=== PATIENT | male | born 1960 | race African-American/Black ===

== ENCOUNTER 2016-07-31 08:01 | Emergency (ER) | payer MEDICAID ==
[~2016-07-31] VITALS: Ht 182.9 cm; Wt 160.0 kg
[~2016-07-31 08:01] MED LIST: ASPI-864
[2016-07-31 08:04] VITALS: BP 168/81
[2016-07-31] MEDS ORDERED: BACITRACIN ZINC OINT UDPKT TOP ONE (08:45)
[2016-07-31] MEDS ORDERED: LIDOCAINE HCL 1% 20ML VIAL (Pyxis) INJ MC ONE (08:45)
== END 2016-07-31 09:50 | disposition home or self-care (01) ==
LOC: ER 08:02
DX: L60.0 Ingrowing nail (principal); I10 Essential (primary) hypertension; E78.00 Pure hypercholesterolemia, unspecified; Z86.718 Personal history of other venous thrombosis and embolism; Z86.711 Personal history of pulmonary embolism; Z79.01 Long term (current) use of anticoagulants; Z79.82 Long term (current) use of aspirin; Z88.8 Allergy status to other drugs, medicaments and biological substances
CPT/HCPCS: 11750; 99284; J3490; X7700; Z7610

== ENCOUNTER 2016-08-02 09:21 | Emergency (ER) | payer MEDICAID ==
[~2016-08-02] VITALS: Ht 182.9 cm; Wt 163.0 kg
[2016-08-02 09:28] VITALS: BP 160/91
[2016-08-02] MEDS ORDERED: BACITRACIN ZINC OINT UDPKT TOP ONE (11:15)
== END 2016-08-02 12:50 | disposition home or self-care (01) ==
LOC: ER 10:31
DX: E11.621 Type 2 diabetes mellitus with foot ulcer (principal); Z88.8 Allergy status to other drugs, medicaments and biological substances; Z79.82 Long term (current) use of aspirin; E78.00 Pure hypercholesterolemia, unspecified; I10 Essential (primary) hypertension
CPT/HCPCS: 99283; A4217

== ENCOUNTER 2017-01-02 15:20 | Inpatient (IN) | payer MEDICAID ==
[~2017-01-02] VITALS: Ht 188 cm; Wt 170.6 kg
[~2017-01-02 15:20] MED LIST changes: +IOHEXOL-350 100 ML BOTTLE ONE; +SODIUM CHLORIDE 0.9% 10ML VIAL ONE
[2017-01-02 18:18] LABS: BASOPHILS % 0.8 % (0.0-2.0); EOSINOPHILS % 0.7 % (0.0-5.0); HEMATOCRIT. 37.8 % (42.0-52.0); HEMOGLOBIN. 12.4 g/dL (14.0-18.0); LYMPHOCYTES % 15.9 % (20.0-50.0); MEAN CORPUSCULAR VOLUME 85.4 fL (80.0-94.0); MEAN PLATELET VOLUME 7.6 fl (7.4-10.4); MONOCYTES % 8.7 % (2.0-8.0); NEUTROPHILS % 73.9 % (40.0-76.0); PLATELET 268 x1000/uL (130-400); RED BLOOD CELL COUNT 4.43 mill/uL (4.7-6.1); RED CELL DISTRIBUTION WIDTH 13.7 % (11.6-14.6)
[2017-01-02 18:21] LABS: CHLORIDE 104 mEq/L (98-107)
[2017-01-02 18:30] LABS: CARBON DIOXIDE 28 mEq/L (21-32)
[2017-01-02 18:31] LABS: TROPONIN I 0.06 ng/mL (0.00-0.04)
[2017-01-02] MEDS ORDERED: ENOXAPARIN 150MG/ML SYR SUBCUT NR (19:45)
[2017-01-02] MEDS ORDERED: AMLO10TA80 PO (22:09)
[2017-01-02] MEDS ORDERED: ATOR20TA PO (22:09)
[2017-01-02 23:40] VITALS: BP 154/86
[2017-01-02] MEDS ORDERED: CYCL5TAB PO (23:50)
[2017-01-03] VITALS (7 sets, daily range): BP systolic 127–155; BP diastolic 65–86
[2017-01-03] MEDS: ACETAMINOPHEN 325MG TABLET PO PRN (00:36)
[2017-01-03] MEDS ORDERED: MORPHINE SULFATE 4 MG/ML CPJ (NOT FOR IM USE) IV PRN (01:15)
[2017-01-03] MEDS ORDERED: MEDICATION NOT ON FORMULARY EA (Cyclobenzaprine Hcl 1 TAB) PO SCH (01:30)
[2017-01-03] MEDS ORDERED: ENOXAPARIN 80MG/0.8ML SYR SUBCUT SCH ×2 (01:45→09:00)
[2017-01-03] MEDS ORDERED: ENOXAPARIN 100MG/ML SYR SUBCUT SCH ×2 (01:45→09:00)
[2017-01-03] MEDS ORDERED: CYCLOBENZAPRINE 10MG TABLET PO PRN (01:45)
[2017-01-03 07:06] LABS: BASOPHILS % 0.5 % (0.0-2.0); EOSINOPHILS % 1.1 % (0.0-5.0); HEMATOCRIT. 37.8 % (42.0-52.0); HEMOGLOBIN. 12.5 g/dL (14.0-18.0); LYMPHOCYTES % 25.4 % (20.0-50.0); MEAN CORPUSCULAR HEMOGLOBIN 28.3 pg (28.0-32.0); MEAN CORPUSCULAR VOLUME 85.4 fL (80.0-94.0); MEAN PLATELET VOLUME 8.2 fl (7.4-10.4); PLATELET 290 x1000/uL (130-400); RED BLOOD CELL COUNT 4.43 mill/uL (4.7-6.1); RED CELL DISTRIBUTION WIDTH 14.1 % (11.6-14.6)
[2017-01-03 07:34] LABS: CHLORIDE 101 mEq/L (98-107)
[2017-01-03 07:49] LABS: CARBON DIOXIDE 26 mEq/L (21-32); HDL CHOLESTEROL 50 mg/dL (40-59); LDL CHOLESTEROL 119 mg/dL (5-100); T4 FREE 1.14 ng/dL (0.76-1.46)
[2017-01-03] MEDS ORDERED: AMLODIPINE 10MG TABLET PO SCH (09:00)
[2017-01-03] MEDS: AMLODIPINE 5MG TABLET PO SCH (10:12)
[2017-01-03] MEDS: ASPIRIN 81MG EC TABLET PO SCH (10:13)
[2017-01-03] MEDS: ENOXAPARIN 150MG/ML SYR SUBCUT SCH ×2 (10:50→21:31)
[2017-01-03 15:39] LABS: INR 1.1
[2017-01-03] MEDS ORDERED: WARFARIN SODIUM 7.5MG TABLET PO SCH (18:00)
[2017-01-03 21:22] LABS: PROTHROMBIN TIME 10.9 sec (9.4-11.6)
[2017-01-03] MEDS: ATORVASTATIN CALCIUM 20MG TABLET PO SCH (21:28)
[2017-01-04] VITALS: BP 119/74
[2017-01-04 04:00] VITALS: BP 136/78
[2017-01-04 07:10] LABS: PROTHROMBIN TIME 10.9 sec (9.4-11.6)
[2017-01-04 08:00] VITALS: BP 108/65
[2017-01-04] MEDS: ASPIRIN 81MG EC TABLET PO SCH (09:13)
[2017-01-04] MEDS: ENOXAPARIN 150MG/ML SYR SUBCUT SCH (09:13)
[2017-01-04] MEDS: AMLODIPINE 5MG TABLET PO SCH (09:14)
[2017-01-04 12:00] VITALS: BP 150/76
[2017-01-04] MEDS ORDERED: MAGNESIUM HYDROXIDE 400MG/5ML 30ML UDC PO PRN (15:45)
[2017-01-04 16:00] VITALS: BP 149/79
[2017-01-04] MEDS ORDERED: WARFARIN SODIUM 4MG TABLET PO NR (18:00)
[2017-01-04] MEDS: DOCUSATE SODIUM 100MG CAPSULE PO SCH (18:13)
[2017-01-04 20:00] VITALS: BP 153/80
[2017-01-04] MEDS: APIXABAN 5 MG TABLET PO SCH (21:00)
[2017-01-04] MEDS: ATORVASTATIN CALCIUM 20MG TABLET PO SCH (21:00)
[2017-01-05] VITALS: BP 150/85
[2017-01-05 04:00] VITALS: BP 158/86
[2017-01-05] MEDS: ACETAMINOPHEN 325MG TABLET PO PRN (05:28)
[2017-01-05 05:38] LABS: INR 1.1; PROTHROMBIN TIME 11.2 sec (9.4-11.6)
[2017-01-05 08:00] VITALS: BP 144/74
[2017-01-05] MEDS: APIXABAN 5 MG TABLET PO SCH (09:27)
[2017-01-05] MEDS: DOCUSATE SODIUM 100MG CAPSULE PO SCH (09:27)
[2017-01-05] MEDS: ASPIRIN 81MG EC TABLET PO SCH (09:28)
[2017-01-05] MEDS: AMLODIPINE 5MG TABLET PO SCH (09:28)
[2017-01-05 12:00] VITALS: BP 133/77
[2017-01-05 15:24] VITALS: BP 133/77
[2017-01-06 09:11] LABS: DRVVT LA 39.8 sec (0.0-47.0); PTT-LA 36.4 sec (0.0-51.9)
[2017-01-06 13:08] LABS: LUPUS ANTICOAG INTERPRETATION Comment: (.)
== END 2017-01-05 16:20 | disposition home or self-care (01) | DRG 134 ==
LOC: ER 15:24 → 5WST 21:58 → ENRESERV 22:26
PROVIDERS: ADMIT Hospitalist; ATTEND Hospitalist
DX: I26.99 Other pulmonary embolism without acute cor pulmonale (principal); J96.00 Acute respiratory failure, unspecified whether with hypoxia or hypercapnia; Z68.42 Body mass index [BMI] 45.0-49.9, adult; D68.59 Other primary thrombophilia; E66.01 Morbid (severe) obesity due to excess calories; R65.10 Systemic inflammatory response syndrome (SIRS) of non-infectious origin without acute organ dysfunction; I10 Essential (primary) hypertension; D64.9 Anemia, unspecified; E11.9 Type 2 diabetes mellitus without complications; E78.00 Pure hypercholesterolemia, unspecified; E78.5 Hyperlipidemia, unspecified; Z79.01 Long term (current) use of anticoagulants; Z86.718 Personal history of other venous thrombosis and embolism; Z82.49 Family history of ischemic heart disease and other diseases of the circulatory system; Z88.8 Allergy status to other drugs, medicaments and biological substances; I25.2 Old myocardial infarction; Z87.01 Personal history of pneumonia (recurrent)
CPT/HCPCS: 36415; 71010; 71275; 80053; 80061; 81403; 81407; 81479; 83880; 84439; 84443; 84484; 85025; 85044; 85300; 85379; 85610; 85613; 85732; 93005; 93306; 93970; 96372; 97116; 97162; 99291; A4216; J1650; Q9967

== ENCOUNTER 2018-11-25 18:42 | Inpatient (IN) | payer MEDICAID ==
[~2018-11-25] VITALS: Ht 182.9 cm; Wt 175.1 kg
[~2018-11-25 18:42] MED LIST changes: +AMLO10TA80 PO; +ATOR20TA PO; +CYCL5TAB PO; -IOHEXOL-350 100 ML BOTTLE ONE; -SODIUM CHLORIDE 0.9% 10ML VIAL ONE
[2018-11-25] MEDS ORDERED: VANCOMYCIN 1 G PREMIX 200 ML IV ONE (20:00)
[2018-11-25] MEDS ORDERED: SODIUM CHLORIDE 0.9% 1000ML BAG (SEPSIS BOLUS) IV ONE (20:00)
[2018-11-25] MEDS ORDERED: PIPERACILLIN/TAZ 3.375G PREMIX 50 ML IV ONE (20:00)
[2018-11-25 20:25] LABS: HEMATOCRIT. 41.1 % (42.0-52.0); HEMOGLOBIN. 13.4 g/dL (14.0-18.0); MEAN CORPUSCULAR HEMOGLOBIN 28.3 pg (28.0-32.0); MEAN CORPUSCULAR VOLUME 86.6 fL (80.0-94.0); MEAN PLATELET VOLUME 7.7 fl (7.4-10.4); PLATELET 313 x1000/uL (130-400); RED BLOOD CELL COUNT 4.75 mill/uL (4.7-6.1); RED CELL DISTRIBUTION WIDTH 14.1 % (11.6-14.6)
[2018-11-25 20:32] LABS: PROTHROMBIN TIME 10.2 sec (9.6-11.0)
[2018-11-25 20:35] LABS: CHLORIDE 102 mEq/L (98-107)
[2018-11-25 20:38] LABS: PLATELET ESTIMATE NORMAL
[2018-11-25] MEDS ORDERED: ACETAMINOPHEN 500MG TABLET PO ONE ×2 (21:15→23:15)
[2018-11-25 21:37] LABS: CLARITY URINE CLEAR (CLEAR); COLOR URINE YELLOW (YELLOW); KETONES URINE NEGATIVE (NEGATIVE); LEUKOCYTE ESTERASE URINE NEGATIVE (NEGATIVE); NITRITE URINE NEGATIVE (NEGATIVE); OCCULT BLOOD URINE NEGATIVE (NEGATIVE); PROTEIN URINE NEGATIVE (NEGATIVE); SPECIFIC GRAVITY URINE 1.014 (1.005-1.030)
[2018-11-25] MEDS ORDERED: IOHEXOL-350 100 ML BOTTLE ONE (23:17)
[2018-11-26] VITALS (7 sets, daily range): BP systolic 106–180; BP diastolic 60–86
[2018-11-26] MEDS ORDERED: APIX5TAB PO (01:07)
[2018-11-26] MEDS ORDERED: HYDROCODONE/ACETAMINOPHEN 5/325MG TABLET PO PRN (04:30)
[2018-11-26] MEDS ORDERED: ACETAMINOPHEN 325MG TABLET PO PRN (04:30)
[2018-11-26] MEDS ORDERED: LEVOFLOXACIN 500MG PREMIX 100 ML IV SCH ×2 (04:30→06:00)
[2018-11-26] MEDS: APIXABAN 5 MG TABLET PO SCH ×2 (09:50→17:25)
[2018-11-26] MEDS ORDERED: DIPHENHYDRAMINE 50MG/ML VIAL IV PRN (11:00)
[2018-11-26] MEDS ORDERED: CLONIDINE 0.1MG TABLET PO PRN (11:00)
[2018-11-26] MEDS ORDERED: DOCUSATE SODIUM 100MG CAPSULE PO PRN (11:00)
[2018-11-26] MEDS ORDERED: HYDRALAZINE 20MG/ML VIAL IV SCH (11:00)
[2018-11-26] MEDS ORDERED: NA PHOS,M-B/NA PHOS,DI-BA ENEMA 118ML PR PRN (11:00)
[2018-11-26] MEDS ORDERED: ONDANSETRON HCL 4MG/2ML INJ IV PRN (11:00)
[2018-11-26] MEDS ORDERED: DEXTROSE 50% WATER 50ML SYRINGE IV PRN (11:00)
[2018-11-26] MEDS ORDERED: LORAZEPAM 2MG/ML CPJ IV PRN (11:00)
[2018-11-26] MEDS ORDERED: GUAIFENESIN 200MG/10ML SUGAR FREE UDC PO PRN (11:00)
[2018-11-26] MEDS ORDERED: MAGNESIUM/ALUMINUM HYDROXIDE/SIMETHICONE 30ML UDC PO PRN (11:00)
[2018-11-26] MEDS ORDERED: PIPERACILLIN/TAZ 3.375G PREMIX 50 ML IV SCH (11:30)
[2018-11-26] MEDS: AMLODIPINE 10MG TABLET PO SCH (11:38)
[2018-11-26] MEDS: INSULIN LISPRO 100 UNITS/ML SUBCUT SCH ×3 (12:15→21:00)
[2018-11-26] MEDS: BLOOD SUGAR DIAGNOSTIC STRIP TEST SCH ×3 (12:30→21:12)
[2018-11-26] MEDS: VANCOMYCIN 2,000 MG in DEXT 5% WATER 500 ML IV SCH (13:12)
[2018-11-26] MEDS: PIPERACILLIN/TAZOBACTAM 3.375 G in DEXT 5% WATER 100 ML IV SCH ×2 (13:12→17:25)
[2018-11-26] MEDS: SODIUM CHLORIDE 0.9% INJ 3ML FLUSH IVF SCH ×2 (13:12→21:13)
[2018-11-26 16:25] LABS: CREATINE KINASE 260 IU/L (39-308)
[2018-11-26 16:26] LABS: CREATINE KINASE MB FRACTION 1.5 ng/mL (0.5-3.6)
[2018-11-26] MEDS ORDERED: HYDRALAZINE 20MG/ML VIAL IV PRN (17:00)
[2018-11-27] VITALS: BP 133/70
[2018-11-27] MEDS: PIPERACILLIN/TAZOBACTAM 3.375 G in DEXT 5% WATER 100 ML IV SCH ×4 (00:30→18:42)
[2018-11-27 00:50] LABS: CREATINE KINASE 267 IU/L (39-308)
[2018-11-27 00:51] LABS: CREATINE KINASE MB FRACTION 1.2 ng/mL (0.5-3.6)
[2018-11-27] MEDS: VANCOMYCIN 2,000 MG in DEXT 5% WATER 500 ML IV SCH ×2 (01:09→15:00)
[2018-11-27 04:00] VITALS: BP 166/72
[2018-11-27] MEDS: SODIUM CHLORIDE 0.9% INJ 3ML FLUSH IVF SCH ×3 (05:08→21:52)
[2018-11-27] MEDS: INSULIN LISPRO 100 UNITS/ML SUBCUT SCH ×4 (06:09→21:00)
[2018-11-27] MEDS: BLOOD SUGAR DIAGNOSTIC STRIP TEST SCH ×4 (06:09→21:29)
[2018-11-27 07:31] LABS: HEMATOCRIT. 35.8 % (42.0-52.0); HEMOGLOBIN. 11.8 g/dL (14.0-18.0); MEAN CORPUSCULAR HEMOGLOBIN 28.2 pg (28.0-32.0); MEAN CORPUSCULAR VOLUME 85.6 fL (80.0-94.0); MEAN PLATELET VOLUME 7.9 fl (7.4-10.4); PLATELET 281 x1000/uL (130-400); RED BLOOD CELL COUNT 4.17 mill/uL (4.7-6.1)
[2018-11-27 07:55] LABS: CHLORIDE 103 mEq/L (98-107)
[2018-11-27 08:00] VITALS: BP 112/64
[2018-11-27 08:05] LABS: LDL CHOLESTEROL 104 mg/dL (5-100)
[2018-11-27 08:06] LABS: T4 FREE 1.16 ng/dL (0.76-1.46)
[2018-11-27 08:09] LABS: HDL CHOLESTEROL 72 mg/dL (40-59)
[2018-11-27] MEDS: AMLODIPINE 10MG TABLET PO SCH (09:42)
[2018-11-27] MEDS: APIXABAN 5 MG TABLET PO SCH ×2 (09:42→17:20)
[2018-11-27 09:44] LABS: PLATELET ESTIMATE NORMAL
[2018-11-27] MEDS ORDERED: POTASSIUM CHLORIDE 20MEQ TABLET SR PO NR (11:00)
[2018-11-27 12:00] VITALS: BP 134/53
[2018-11-27 15:13] LABS: CREATINE KINASE 265 IU/L (39-308)
[2018-11-27 15:15] LABS: CREATINE KINASE MB FRACTION 1.2 ng/mL (0.5-3.6)
[2018-11-27 16:00] VITALS: BP 134/62
[2018-11-27 20:00] VITALS: BP 147/55
[2018-11-28] VITALS: BP 116/55
[2018-11-28 00:24] LABS: CREATINE KINASE 226 IU/L (39-308)
[2018-11-28 00:25] LABS: CREATINE KINASE MB FRACTION 1.1 ng/mL (0.5-3.6)
[2018-11-28] MEDS: PIPERACILLIN/TAZOBACTAM 3.375 G in DEXT 5% WATER 100 ML IV SCH ×3 (00:56→15:26)
[2018-11-28] MEDS: VANCOMYCIN 2,000 MG in DEXT 5% WATER 500 ML IV SCH ×2 (02:03→15:26)
[2018-11-28 04:00] VITALS: BP 123/64
[2018-11-28] MEDS: SODIUM CHLORIDE 0.9% INJ 3ML FLUSH IVF SCH ×2 (05:44→15:26)
[2018-11-28 06:24] LABS: BASOPHILS % 0.5 % (0.0-2.0); EOSINOPHILS % 0.9 % (0.0-5.0); HEMATOCRIT. 35.5 % (42.0-52.0); HEMOGLOBIN. 11.8 g/dL (14.0-18.0); LYMPHOCYTES % 16.7 % (20.0-50.0); MEAN CORPUSCULAR HEMOGLOBIN 28.5 pg (28.0-32.0); MEAN CORPUSCULAR VOLUME 85.5 fL (80.0-94.0); MEAN PLATELET VOLUME 7.8 fl (7.4-10.4); MONOCYTES % 10.4 % (2.0-8.0); NEUTROPHILS % 71.5 % (40.0-76.0); PLATELET 301 x1000/uL (130-400); RED BLOOD CELL COUNT 4.15 mill/uL (4.7-6.1)
[2018-11-28] MEDS: INSULIN LISPRO 100 UNITS/ML SUBCUT SCH ×2 (06:30→12:13)
[2018-11-28] MEDS: BLOOD SUGAR DIAGNOSTIC STRIP TEST SCH ×2 (06:30→12:13)
[2018-11-28 06:40] LABS: CHLORIDE 104 mEq/L (98-107)
[2018-11-28 06:54] LABS: CREATINE KINASE 216 IU/L (39-308)
[2018-11-28 06:58] LABS: CREATINE KINASE MB FRACTION < 1.0 ng/mL (0.5-3.6)
[2018-11-28 08:00] VITALS: BP 140/69
[2018-11-28] MEDS: APIXABAN 5 MG TABLET PO SCH (08:45)
[2018-11-28] MEDS: AMLODIPINE 10MG TABLET PO SCH (08:46)
[2018-11-28 11:09] VITALS: BP_SYST 140; BP_SYST 147; BP_DIAS 69; BP_DIAS 73
[2018-11-28 12:00] VITALS: BP 144/64
[2018-11-28 16:00] VITALS: BP 147/73
== END 2018-11-28 17:30 | disposition home or self-care (01) | DRG 197 ==
LOC: ER 18:42 → 5WST 22:35 → EDBEDREQ 22:45 → EDBEDREQTM 22:45 → ENRESERV 23:48
PROVIDERS: ADMIT Internal Medicine; ATTEND Internal Medicine
DX: I87.2 Venous insufficiency (chronic) (peripheral) (principal); E11.51 Type 2 diabetes mellitus with diabetic peripheral angiopathy without gangrene; R65.10 Systemic inflammatory response syndrome (SIRS) of non-infectious origin without acute organ dysfunction; E66.01 Morbid (severe) obesity due to excess calories; Z68.43 Body mass index [BMI] 50.0-59.9, adult; I11.9 Hypertensive heart disease without heart failure; B35.1 Tinea unguium; I10 Essential (primary) hypertension; E78.5 Hyperlipidemia, unspecified; E87.6 Hypokalemia; M17.0 Bilateral primary osteoarthritis of knee; I25.2 Old myocardial infarction; Z86.711 Personal history of pulmonary embolism; Z86.718 Personal history of other venous thrombosis and embolism; Z88.8 Allergy status to other drugs, medicaments and biological substances; Z79.01 Long term (current) use of anticoagulants; Z79.82 Long term (current) use of aspirin; Z79.899 Other long term (current) drug therapy; Z87.01 Personal history of pneumonia (recurrent); Z71.3 Dietary counseling and surveillance
CPT/HCPCS: 36415; 71045; 71275; 80048; 80061; 80202; 81003; 82550; 82553; 82962; 83036; 83605; 83880; 84145; 84439; 84443; 84484; 85379; 93005; 93308; 96374; 99285; J0360; J1815; J1956; J2543; J3370; J7030; J7040; J7060; Q9967

== ENCOUNTER 2019-12-17 04:07 | Inpatient (IN) | payer MEDICAID ==
[~2019-12-17] VITALS: Ht 182.9 cm; Wt 160.1 kg
[~2019-12-17 04:07] MED LIST changes: +APIX5TAB PO
[2019-12-17] MEDS ORDERED: ONDANSETRON HCL 4MG/2ML INJ IV STA (04:25)
[2019-12-17] MEDS ORDERED: DILTIAZEM HCL 5MG/ML 5ML VIAL IV ONE (04:30)
[2019-12-17] MEDS ORDERED: LEVETIRACETAM 1000MG/100ML 100 ML IV ONE (04:30)
[2019-12-17 04:53] LABS: BASOPHILS % 0.7 % (0.0-2.0); HEMATOCRIT. 37.9 % (42.0-52.0); HEMOGLOBIN. 12.3 g/dL (14.0-18.0); MEAN CORPUSCULAR HEMOGLOBIN 28.1 pg (28.0-32.0); MEAN CORPUSCULAR VOLUME 86.9 fL (80.0-94.0); MONOCYTES % 5.4 % (2.0-8.0); NEUTROPHILS % 80.9 % (40.0-76.0); PLATELET 325 x1000/uL (130-400); RED BLOOD CELL COUNT 4.37 mill/uL (4.7-6.1); RED CELL DISTRIBUTION WIDTH 14.4 % (11.6-14.6)
[2019-12-17 04:57] LABS: CHLORIDE 104 mEq/L (98-107)
[2019-12-17 05:01] LABS: ETHANOL BLOOD < 10 mg/dL
[2019-12-17 05:05] LABS: CLARITY URINE CLEAR (CLEAR); COLOR URINE YELLOW (YELLOW); KETONES URINE NEGATIVE (NEGATIVE); LEUKOCYTE ESTERASE URINE NEGATIVE (NEGATIVE); NITRITE URINE NEGATIVE (NEGATIVE); OCCULT BLOOD URINE NEGATIVE (NEGATIVE); PH URINE 6.5 (4.5-8.0); PROTEIN URINE NEGATIVE (NEGATIVE); SPECIFIC GRAVITY URINE 1.011 (1.005-1.030)
[2019-12-17 05:08] LABS: PARTIAL THROMBOPLASTIN TIME 24.5 sec (23.4-31.0); PROTHROMBIN TIME 10.3 sec (9.6-11.0)
[2019-12-17 05:15] LABS: *AMPHETAMINES SCREEN URINE NEGATIVE (NEGATIVE); *BARBITURATES SCREEN URINE NEGATIVE (NEGATIVE); *BENZODIAZEPINES SCREEN URINE NEGATIVE (NEGATIVE); *COCAINE SCREEN URINE NEGATIVE (NEGATIVE)
[2019-12-17 05:16] LABS: CANNABINOID URINE SCREEN NEGATIVE (NEGATIVE); METHADONE URINE SCREEN NEGATIVE (NEGATIVE); OPIATES URINE SCREEN NEGATIVE (NEGATIVE); PHENCYCLIDINE URINE SCREEN NEGATIVE (NEGATIVE)
[2019-12-17] MEDS ORDERED: CLONIDINE 0.1MG TABLET PO PRN (08:15)
[2019-12-17] MEDS ORDERED: ENOXAPARIN 40MG/0.4ML SYR SUBCUT SCH ×2 (08:15→10:30)
[2019-12-17] MEDS ORDERED: ACETAMINOPHEN 325MG TABLET PO PRN (08:15)
[2019-12-17] MEDS ORDERED: MAGNESIUM/ALUMINUM HYDROXIDE/SIMETHICONE 30ML UDC PO PRN (08:15)
[2019-12-17] MEDS ORDERED: HYDROCODONE/ACETAMINOPHEN 10/325MG TABLET PO PRN (08:15)
[2019-12-17] MEDS ORDERED: LORAZEPAM 2MG/ML CPJ IV PRN (08:15)
[2019-12-17] MEDS ORDERED: ONDANSETRON HCL 4MG/2ML INJ IV PRN (08:15)
[2019-12-17] MEDS ORDERED: DIPHENHYDRAMINE 50MG/ML VIAL IV PRN (08:15)
[2019-12-17] MEDS ORDERED: DOCUSATE SODIUM 100MG CAPSULE PO PRN (08:15)
[2019-12-17] MEDS ORDERED: GUAIFENESIN 200MG/10ML SUGAR FREE UDC PO PRN (08:15)
[2019-12-17] MEDS ORDERED: MORPHINE SULFATE 2 MG/ML CPJ (NOT FOR IM USE) IV PRN (08:15)
[2019-12-17] MEDS ORDERED: IPRATROPIUM/ALBUTEROL 0.5-3(2.5)MG/3ML NEB HHN PRN ×2 (08:15→10:30)
[2019-12-17] MEDS: LEVETIRACETAM 500MG TABLET PO SCH ×2 (10:50→20:45)
[2019-12-17 12:00] VITALS: BP_SYST 131; BP_SYST 133; BP_DIAS 71; BP_DIAS 72
[2019-12-17] MEDS ORDERED: FURO-151 PO (12:19)
[2019-12-17] MEDS ORDERED: POTA20TA82 MT (12:19)
[2019-12-17] MEDS ORDERED: FERR325T23 MT (12:19)
[2019-12-17 12:48] VITALS: BP 133/68
[2019-12-17 13:35] LABS: T4 FREE 1.23 ng/dL (0.76-1.46)
[2019-12-17] MEDS: SODIUM CHLORIDE 0.9% INJ 3ML FLUSH IVF SCH ×2 (14:21→21:14)
[2019-12-17 16:00] VITALS: BP_SYST 123; BP_SYST 124; BP_DIAS 61; BP_DIAS 78
[2019-12-17 16:04] LABS: CREATINE KINASE 41 IU/L (39-308)
[2019-12-17 16:05] LABS: CREATINE KINASE MB FRACTION < 1.0 ng/mL (0.5-3.6)
[2019-12-17] MEDS: APIXABAN 5 MG TABLET PO SCH (16:28)
[2019-12-17 20:00] VITALS: BP 144/77
[2019-12-17] MEDS ORDERED: IOHEXOL-350 100 ML BOTTLE ONE (23:19)
[2019-12-18] VITALS (7 sets, daily range): BP systolic 118–138; BP diastolic 51–87
[2019-12-18 00:13] LABS: CREATINE KINASE 45 IU/L (39-308)
[2019-12-18 00:14] LABS: CREATINE KINASE MB FRACTION < 1.0 ng/mL (0.5-3.6)
[2019-12-18] MEDS: SODIUM CHLORIDE 0.9% INJ 3ML FLUSH IVF SCH (06:00)
[2019-12-18 06:10] LABS: BASOPHILS % 0.8 % (0.0-2.0); EOSINOPHILS % 2.3 % (0.0-5.0); HEMATOCRIT. 35.6 % (42.0-52.0); HEMOGLOBIN. 11.6 g/dL (14.0-18.0); LYMPHOCYTES % 24.7 % (20.0-50.0); MEAN CORPUSCULAR HEMOGLOBIN 28.1 pg (28.0-32.0); MEAN CORPUSCULAR VOLUME 86.4 fL (80.0-94.0); MEAN PLATELET VOLUME 8.3 fl (7.4-10.4); MONOCYTES % 9.4 % (2.0-8.0); NEUTROPHILS % 62.8 % (40.0-76.0); PLATELET 311 x1000/uL (130-400); RED BLOOD CELL COUNT 4.12 mill/uL (4.7-6.1); RED CELL DISTRIBUTION WIDTH 14.5 % (11.6-14.6)
[2019-12-18 06:33] LABS: CHLORIDE 104 mEq/L (98-107)
[2019-12-18 07:04] LABS: CREATINE KINASE 32 IU/L (39-308)
[2019-12-18 07:08] LABS: CREATINE KINASE MB FRACTION < 1.0 ng/mL (0.5-3.6)
[2019-12-18] MEDS: LEVETIRACETAM 500MG TABLET PO SCH (08:43)
[2019-12-18] MEDS: APIXABAN 5 MG TABLET PO SCH (08:43)
[2019-12-18] MEDS ORDERED: POTASSIUM CHLORIDE 20MEQ TABLET SR PO SCH (09:15)
[2019-12-18] MEDS ORDERED: SODIUM BICARBONATE 4% (2.4MEQ) 5ML VIAL IV ONE (12:28)
[2019-12-18] MEDS ORDERED: LIDOCAINE HCL 1% 20ML VIAL (Pyxis) INJ ONE (12:28)
[2019-12-18] MEDS ORDERED: IOHEXOL-350 100 ML BOTTLE ONE (14:39)
== END 2019-12-18 21:10 | disposition home or self-care (01) | DRG 53 ==
LOC: ER 04:07 → 8WST 06:07 → EDBEDREQTM 06:11 → EDBEDREQ 06:11 → ENRESERV 08:49
PROVIDERS: ADMIT Internal Medicine; ATTEND Internal Medicine
PROC: 02HV33Z Insertion of Infusion Device into Superior Vena Cava, Percutaneous Approach (ICD-10-PCS; principal; 2019-12-18)
PROC: B548ZZA Ultrasonography of Superior Vena Cava, Guidance (ICD-10-PCS; 2019-12-18)
PROC: B5181ZA Fluoroscopy of Superior Vena Cava using Low Osmolar Contrast, Guidance (ICD-10-PCS; 2019-12-18)
PROC: 4A00X4Z Measurement of Central Nervous Electrical Activity, External Approach (ICD-10-PCS; 2019-12-18)
DX: R56.9 Unspecified convulsions (principal); E66.01 Morbid (severe) obesity due to excess calories; E78.5 Hyperlipidemia, unspecified; I11.0 Hypertensive heart disease with heart failure; I31.3 Pericardial effusion (noninflammatory); I48.0 Paroxysmal atrial fibrillation; I50.9 Heart failure, unspecified; D35.01 Benign neoplasm of right adrenal gland; K80.20 Calculus of gallbladder without cholecystitis without obstruction; Z68.42 Body mass index [BMI] 45.0-49.9, adult; I25.2 Old myocardial infarction; Z86.711 Personal history of pulmonary embolism; Z71.89 Other specified counseling; Z79.899 Other long term (current) drug therapy; Z79.82 Long term (current) use of aspirin; Z88.8 Allergy status to other drugs, medicaments and biological substances
CPT/HCPCS: 36415; 36573; 71045; 71275; 80053; 80061; 80305; 80320; 81003; 82550; 82553; 82962; 83036; 83880; 84439; 84443; 84484; 85025; 85379; 93005; 93306; 93970; 95816; 97162; 99291; C1725; C1892; J1953; J2405; J3490; L8514; Q9967; G0480

== ENCOUNTER 2024-05-13 12:01 | Emergency (ER) | payer MEDICAID ==
[~2024-05-13] VITALS: Ht 182.9 cm; Wt 160.0 kg
[~2024-05-13 12:01] MED LIST changes: -CYCL5TAB PO; +CYCL5TAB3 PO; +FERR325T23 MT; +FURO-151 PO; +POTA-205 MT
[2024-05-13 12:03] VITALS: O2SAT 98
[2024-05-13 12:36] LABS: BASOPHILS % 0.1 % (0.0-2.0); EOSINOPHILS % 1.5 % (0.0-5.0); HEMATOCRIT. 42.4 % (42.0-52.0); HEMOGLOBIN. 13.6 g/dL (14.0-18.0); LYMPHOCYTES % 8.5 % (20.0-50.0); MEAN CORPUSCULAR HEMOGLOBIN 28.6 pg (28.0-32.0); MEAN CORPUSCULAR HGB CONC 32.1 g/dL (31.0-37.0); MEAN CORPUSCULAR VOLUME 89.3 fL (80.0-94.0); MEAN PLATELET VOLUME 7.5 fl (7.4-10.4); MONOCYTES % 6.8 % (2.0-8.0); NEUTROPHILS % 83.1 % (40.0-76.0); PLATELET 345 x1000/uL (130-400); RED BLOOD CELL COUNT 4.75 mill/uL (4.7-6.1); RED CELL DISTRIBUTION WIDTH 13.7 % (11.6-14.6); WHITE BLOOD COUNT 12.6 x1000/uL (4.5-11.0)
[2024-05-13] MEDS: FAMOTIDINE 20MG TABLET PO ONE (12:43)
[2024-05-13] MEDS: ONDANSETRON 4MG ODT PO ONE (12:43)
[2024-05-13] MEDS: ACETAMINOPHEN 325MG TABLET PO ONE (12:43)
[2024-05-13] MEDS: MAGNESIUM/ALUMINUM HYDROXIDE/SIMETHICONE 30ML UDC PO STA (12:43)
[2024-05-13 12:53] LABS: CARBON DIOXIDE 28 mEq/L (21-32); CHLORIDE 103 mEq/L (98-107); SODIUM 140 mEq/L (136-145)
[2024-05-13 12:54] LABS: CALCIUM 9.7 mg/dL (8.7-10.4)
[2024-05-13 12:58] LABS: CREATININE 0.9 mg/dL (0.6-1.3)
[2024-05-13 12:59] LABS: GLUCOSE 116 mg/dL (70-105); UREA NITROGEN BLOOD 8 mg/dL (9-23)
[2024-05-13 13:00] LABS: ALANINE AMINOTRANSFERASE 8 IU/L (10-49); ALBUMIN 4.3 g/dL (3.2-4.8); ASPARTATE AMINOTRANSFERASE 11 IU/L (<34)
[2024-05-13 13:01] LABS: BILIRUBIN DIRECT 0.2 mg/dL (<=3.0); BILIRUBIN TOTAL 0.7 mg/dL (0.1-1.0); PROTEIN TOTAL 7.4 g/dL (6.0-8.3)
[2024-05-13] MEDS ORDERED: ONDA-239 PO (15:45)
[2024-05-13] MEDS ORDERED: FAMO-135 MT (15:45)
[2024-05-13] MEDS ORDERED: AMOX1TAB16 MT (15:45)
[2024-05-13 17:00] VITALS: BP 132/77; PULSE 91; RESP 18; TEMP 36.8; O2SAT 99
== END 2024-05-13 17:25 | disposition home or self-care (01) ==
LOC: ER 12:01
DX: R10.13 Epigastric pain (principal); I11.0 Hypertensive heart disease with heart failure; I50.9 Heart failure, unspecified; I25.2 Old myocardial infarction; Z79.01 Long term (current) use of anticoagulants; I48.91 Unspecified atrial fibrillation; Z79.899 Other long term (current) drug therapy; Z88.8 Allergy status to other drugs, medicaments and biological substances
CPT/HCPCS: 99284; 74176; 80076; 80048; 83690; 85025; 36415; Q0162